=== PATIENT | female | born 1965 | race African-American/Black ===

== ENCOUNTER 2018-03-29 20:05 | Emergency (ER) | payer MEDICAID ==
[~2018-03-29] VITALS: Ht 162.6 cm; Wt 104.0 kg
[2018-03-29] MEDS ORDERED: IPRA4AER INH (20:37)
[2018-03-30 01:00] VITALS: BP 135/77
== END 2018-03-30 01:00 | disposition home or self-care (01) ==
LOC: ER 20:05
DX: J06.9 Acute upper respiratory infection, unspecified (principal); J45.909 Unspecified asthma, uncomplicated
CPT/HCPCS: 99283